=== PATIENT | female | born 1975 | race Caucasian/White ===

== ENCOUNTER 2018-04-26 18:43 | Emergency (ER) | payer MEDICARE, MEDICAID ==
[~2018-04-26] VITALS: Ht 177.8 cm; Wt 54.0 kg
[2018-04-26] MEDS ORDERED: LORazepam 1MG TABLET PO ONE (19:00)
[2018-04-26] MEDS ORDERED: LORazepam 1MG TABLET ONE (19:07)
[2018-04-26] MEDS ORDERED: SPIRONOLACTONE PO (19:14)
[2018-04-26 19:18] LABS: BASOPHILS # (AUTO) 0.09 x10^3/uL (0-0.1); BASOPHILS % (AUTO) 1 % (0-1); EOSINOPHILS # (AUTO) 0.24 x10^3/uL (0-0.4); EOSINOPHILS % (AUTO) 3 % (1-7); LYMPHOCYTES # (AUTO) 1.79 x10^3/uL (1-3.4); LYMPHOCYTES % (AUTO) 19 % (22-44); MD NO; MEAN CORPUSCULAR HGB CONC 34.2 g/dL (32.4-35.8); MEAN CORPUSCULAR VOLUME 102.6 fL (80-100); MEAN PLATELET VOLUME 7.8 fL (7.4-10.4); MONOCYTES # (AUTO) 1.23 x10^3/uL (0.2-0.8); MONOCYTES % (AUTO) 13 % (2-9); NEUTROPHILS # (AUTO) 6.18 x10^3/uL (1.8-6.8); NEUTROPHILS % (AUTO) 65 % (42-75); PLATELET COUNT 164 x10^3/uL (130-400); RED BLOOD COUNT 3.93 x10^6/uL (3.82-5.3); RED CELL DISTRIBUTION WIDTH 13.8 % (9.6-15.2)
[2018-04-26 19:25] LABS: ALBUMIN 4.2 g/dL (3.4-5.0); ANION GAP 10 mmol/L (5-15); CALCIUM 9.2 mg/dL (8.5-10.1); CHLORIDE 102 mmol/L (98-107); CREATININE 0.69 mg/dL (0.55-1.02)
[2018-04-26 19:29] LABS: TROPONIN I < 0.015 ng/mL (0.000-0.045)
[2018-04-26] MEDS ORDERED: DIPHENHYDRAMINE 25 MG CAPSULE PO ONE (20:00)
[2018-04-26] MEDS ORDERED: SODIUM CHLORIDE FLUSH 10ML SYR IVF ONE (20:00)
[2018-04-26] MEDS ORDERED: KETOROLAC 30 MG/1 ML IVPush ONE (20:00)
[2018-04-26] MEDS ORDERED: SODIUM CHLORIDE 0.9% 1,000ML IVBOLUS ONE (20:00)
[2018-04-26] MEDS ORDERED: PROCHLORPERAZINE 5 MG/ML, 2ML ONE (20:00)
[2018-04-26] MEDS ORDERED: DIPHENHYDRAMINE 25 MG CAPSULE ONE (20:00)
[2018-04-26] MEDS ORDERED: PROCHLORPERAZINE 5 MG/ML, 2ML IV ONE (20:00)
[2018-04-26] MEDS ORDERED: KETOROLAC 30 MG/1 ML ONE (20:00)
[2018-04-26 21:11] LABS: AMPHETAMINE SCREEN, URINE Negative (Negative); BARBITURATE SCREEN, URINE Negative (Negative); BENZODIAZEPINE SCREEN, URINE Negative (Negative); CANNABINOID SCREEN, URINE Negative (Negative); COCAINE SCREEN, URINE Negative (Negative); METHADONE SCREEN, URINE Negative (Negative); OPIATE SCREEN, URINE Negative (Negative)
[2018-04-26 21:22] VITALS: BP 113/62
== END 2018-04-26 21:24 | disposition home or self-care (01) ==
LOC: ED 20:43
DX: R07.9 Chest pain, unspecified (principal); G44.201 Tension-type headache, unspecified, intractable; G89.29 Other chronic pain; M54.9 Dorsalgia, unspecified; M54.2 Cervicalgia; E03.9 Hypothyroidism, unspecified; F32.9 Major depressive disorder, single episode, unspecified
CPT/HCPCS: 36415; 71045; 80048; 80307; 82040; 84484; 85025; 93005; 96374; 96375; 99285; J0780; J1885; J7030; Q0163

== ENCOUNTER 2018-04-29 12:57 | Emergency (ER) | payer MEDICARE, MEDICAID ==
[~2018-04-29] VITALS: Ht 160 cm; Wt 54.0 kg
[~2018-04-29 12:57] MED LIST: SPIRONOLACTONE PO
[2018-04-29 15:17] VITALS: BP 126/74
[2018-04-29] MEDS ORDERED: CEFAZOLIN 1,000 MG IM ONE (15:30)
[2018-04-29] MEDS ORDERED: CEFAZOLIN 1,000 MG ONE (15:56)
== END 2018-04-29 17:30 | disposition home or self-care (01) ==
LOC: ED 15:34
DX: F41.1 Generalized anxiety disorder (principal); L03.031 Cellulitis of right toe
CPT/HCPCS: 96372; 99284; J0690